=== PATIENT | female | born 1965 ===

== ENCOUNTER → 2020-08-21 15:37 | Outpatient (BNVA) | payer OTHER, MEDICAID, SELFPAY | PROVIDERS: Visit Provider Anesthesiology | DX: M46.1 Sacroiliitis, not elsewhere classified (principal); M48.00 Spinal stenosis, site unspecified; M51.36 Other intervertebral disc degeneration, lumbar region | CPT/HCPCS: 99204 ==

== ENCOUNTER 2020-10-03 06:17 | Outpatient (REF) | payer OTHER, SELFPAY | END 2020-10-03 06:18 | disposition home or self-care (01) | LOC: HO.RADIR 06:17 | PROVIDERS: Visit Provider Anesthesiology | DX: Z13.89 Encounter for screening for other disorder (principal) | CPT/HCPCS: J3300; Q9967 ==

== ENCOUNTER 2020-11-07 05:26 | Outpatient (REF) | payer OTHER, SELFPAY | END 2020-11-07 05:27 | disposition home or self-care (01) | LOC: HO.RADIR 05:26 | PROVIDERS: Visit Provider Anesthesiology | DX: Z13.89 Encounter for screening for other disorder (principal) ==

== ENCOUNTER 2021-01-02 06:08 | Outpatient (REF) | payer OTHER, SELFPAY ==
--- NOTE | ~2021-01-02 | FL_ITS ---
EXAMINATION: XR FLUOROSCOPY WITH IMAGES CLINICAL INFORMATION: M46.1 - Sacroiliitis, not elsewhere classified COMPARISON: Outside MR lumbar spine 06/02/2020 ([facility]). TECHNIQUE: Fluoroscopy performed by Katerine Pelayo NP. Fluoroscopy time: 0.2 minutes DAP: 1.07 Gycm2 Images: 1 FINDINGS: There is spinal needle overlying lower right SI joint with some contrast in the soft tissue and trace intra-articular contrast. FL/FL guidance in treatment room IMPRESSION: Fluoroscopy for pain management procedure.
== END 2021-01-02 06:09 | disposition home or self-care (01) ==
LOC: HO.RADIR 06:08
PROVIDERS: Visit Provider Anesthesiology
DX: M46.1 Sacroiliitis, not elsewhere classified (principal); M48.00 Spinal stenosis, site unspecified; M51.36 Other intervertebral disc degeneration, lumbar region
CPT/HCPCS: 27096; J3300; Q9967

== ENCOUNTER 2021-03-27 06:20 | Outpatient (REF) | payer OTHER, SELFPAY | END 2021-03-27 06:21 | disposition home or self-care (01) | LOC: HO.RADIR 06:20 | PROVIDERS: Visit Provider Anesthesiology | DX: Z13.89 Encounter for screening for other disorder (principal) ==

== ENCOUNTER 2021-05-15 05:50 | Outpatient (REF) | payer OTHER, SELFPAY ==
--- NOTE | ~2021-05-15 | FL_ITS ---
EXAMINATION: XR FLUOROSCOPY WITH IMAGES CLINICAL INFORMATION: Sacroiliitis. COMPARISON: None. TECHNIQUE: Fluoroscopy performed by Katerine Pelayo NP. Fluoroscopy time: 0.3 minutes DAP: 4.54 Gy-cm2 Images: 3 FINDINGS: Images of the pelvis were obtained revealing needle position along right inferior SI joint with contrast opacifying the adjacent soft tissues. The right SI joint space is maintained normal. FL/FL guidance in treatment room IMPRESSION: Fluoroscopy was provided to referring physician for right SI joint pain management.
== END 2021-05-15 05:51 | disposition home or self-care (01) ==
LOC: HO.RADIR 05:50
PROVIDERS: Visit Provider Anesthesiology
DX: M46.1 Sacroiliitis, not elsewhere classified (principal); M48.00 Spinal stenosis, site unspecified; M51.36 Other intervertebral disc degeneration, lumbar region
CPT/HCPCS: 27096; J3300; Q9967

== ENCOUNTER → 2021-06-21 10:44 | Outpatient (BNVA) | payer OTHER, SELFPAY | PROVIDERS: PCP Nurse Practitioner Family; Visit Provider Anesthesiology ==

== ENCOUNTER → 2021-08-06 13:45 | Outpatient (BNVA) | payer OTHER, SELFPAY | PROVIDERS: PCP Nurse Practitioner Family; Visit Provider Anesthesiology | DX: M46.1 Sacroiliitis, not elsewhere classified (principal); M48.00 Spinal stenosis, site unspecified; M51.36 Other intervertebral disc degeneration, lumbar region | CPT/HCPCS: 99212 ==